=== PATIENT | female | born 1955 | race Caucasian/White ===

== ENCOUNTER 2019-02-27 06:14 | Emergency (ER) | payer BC ==
[~2019-02-27] VITALS: Ht 160 cm; Wt 88.0 kg
[~2019-02-27 06:14] MED LIST: NON ASPIRI2 OR; TORADOL OR
[2019-02-27] MEDS ORDERED: MAXALT10 MG PO (06:40)
[2019-02-27] MEDS ORDERED: INDERAL10 MG PO (06:40)
[2019-02-27] MEDS ORDERED: FLEXERIL PO (07:42)
[2019-02-27] MEDS ORDERED: ULTRAM50 MG PO (07:42)
[2019-02-27] MEDS ORDERED: MEDDOSEPAK PO (07:42)
[2019-02-27 07:55] VITALS: BP 139/87
== END 2019-02-27 07:55 | disposition home or self-care (01) | DRG 563 ==
LOC: ED 06:14
DX: S39.012A Strain of muscle, fascia and tendon of lower back, initial encounter (principal); X50.1XXA Overexertion from prolonged static or awkward postures, initial encounter; M47.9 Spondylosis, unspecified

== ENCOUNTER 2020-10-25 09:08 | Emergency (ER) | payer BC ==
[~2020-10-25] VITALS: Ht 160 cm; Wt 85.0 kg
[~2020-10-25 09:08] MED LIST changes: +FLEXERIL PO; +INDERAL10 MG PO; +MAXALT10 MG PO; +MEDDOSEPAK PO; +ULTRAM50 MG PO
[2020-10-25 10:50] LABS: HEMOGLOBIN 14.3 g/dl (12.0-16.0); IMMATURE GRANULOCYTES 0.2 % (0.0-5.0); MEAN CELL VOLUME 87.2 fL CALC (80.0-100.0); MEAN CORPUSCULAR HGB CONC 33.3 g/dL CAL (32.0-36.0); NEUT# 4.48 thou/uL (2.00-7.15); RED BLOOD COUNT 4.93 mill/uL (4.20-5.60); RED CELL DISTRI WIDTH 13.1 % (11.5-15.5)
[2020-10-25 10:59] LABS: ALBUMIN 4.1 g/dL (3.2-5.0); ALKALINE PHOSPHATASE 81 u/l (38-126); AMYLASE 49 u/l (30-110); ANION GAP 11 (6-22 (CALC)); BILIRUBIN, TOTAL 0.6 mg/dL (0.0-1.4); BUN 15 mg/dL (8-23); BUN/CREATININE RATIO 20 (12-20 (CALC)); CARBON DIOXIDE 26 mmol/l (22-30); CHLORIDE 104 mmol/l (95-108); CREATININE 0.7 mg/dL (0.5-1.0); GFR > 60 ML/MIN (>=60 (CALC)); GFR FOR AFR.AMER. > 60 ML/MIN (>=60 (CALC)); LIPASE 29 u/l (23-300); POTASSIUM 4.4 mmol/l (3.5-5.1); SGOT/AST 31 u/l (9-36); SODIUM 137 mmol/l (137-146); TOTAL PROTEIN 6.7 g/dL (6.3-8.2)
[2020-10-25 11:12] LABS: MYOGLOBIN 31 ng/mL (0 - 62)
[2020-10-25 12:05] LABS: URINE BILIRUBIN - DIPSTICK NEGATIVE (NEGATIVE); URINE BLOOD DIPSTICK NEGATIVE (NEGATIVE); URINE COLOR YELLOW; URINE GLUCOSE - DIPSTICK NEGATIVE (NEGATIVE); URINE KETONE NEGATIVE (NEGATIVE); URINE LEUK ESTERASE NEGATIVE (NEGATIVE); URINE PROTEIN - DIPSTICK NEGATIVE (NEG-TRACE); URINE SPECIFIC GRAVITY 1.025; URINE UROBILINOGEN - DIPSTICK 0.2 E.U./dL (0.2)
[2020-10-25 12:49] LABS: URINE NITRITE - DIPSTICK NEGATIVE (Negative)
[2020-10-25 16:22] VITALS: BP 144/68
[2020-10-25] MEDS ORDERED: ZOFRAN4 MG/TAB PO (17:07)
[2020-10-25] MEDS ORDERED: TORADOL PO (17:07)
== END 2020-10-25 16:22 | disposition home or self-care (01) | DRG 446 ==
LOC: ED 09:08
PROVIDERS: Emergency Medicine
DX: K80.20 Calculus of gallbladder without cholecystitis without obstruction (principal)
CPT/HCPCS: Q9967